=== PATIENT | male | born 1970 | race Two or more races ===

== ENCOUNTER 2022-11-06 08:35 | Day surgery (SDC) | payer OTHER ==
[~2022-11-06] VITALS: Ht 175.3 cm; Wt 97.1 kg
[~2022-11-06 08:35] MED LIST: ATORVASTATIN CA10 MG PO; SYNTHROID75 MCG PO
== END 2022-11-06 17:20 | disposition home or self-care (01) ==
LOC: CIR.AMB 08:35
PROVIDERS: ATTEND Orthopaedic Surgery
DX: M25.312 Other instability, left shoulder (principal); M94.212 Chondromalacia, left shoulder; S43.492A Other sprain of left shoulder joint, initial encounter; Z20.822 Contact with and (suspected) exposure to COVID-19